=== PATIENT | male | born 1950 | race Caucasian/White ===

== ENCOUNTER → 2018-04-13 | Outpatient (CLI) | payer BC ==
[2018-04-13 12:26] LABS: BASO % 0.6 %; BASO ABS # 0.04 K/uL (0-0.2); EOS % 3.2 %; EOS ABS # 0.23 K/uL (0-0.5); HEMATOCRIT 44.2 % (42-52); HEMOGLOBIN 14.5 g/dL (14.0-18.0); IG# 0.03 K/uL (0.00-0.02); LYMPH % 26.3 %; LYMPH ABS # 1.88 K/uL (1.2-3.4); MEAN CORPUSCULAR HEMOGLOBIN 28.9 pg (25-34); MEAN CORPUSCULAR HGB CONC 32.8 g/dl (32-36); MEAN PLATELET VOLUME 9.8 fL (7.4-10.4); MONO % 7.6 %; MONO ABS # 0.54 K/uL (0.11-0.59); NEUT % 61.9 %; NEUT ABS # 4.42 K/uL (1.4-6.5); PLATELET COUNT 129 K/uL (130-400); RED CELL DISTRIBUTION WIDTH CV 13.6 % (11.5-14.5); RED CELL DISTRIBUTION WIDTH SD 43.7 fL (36.4-46.3); WHITE BLOOD COUNT 7.14 K/uL (4.8-10.8)
[2018-04-13 12:56] LABS: HEMOGLOBIN A1C 7.6 % (4.5-5.6)
[2018-04-13 13:11] LABS: ALBUMIN 3.2 gm/dl (3.4-5.0); ALKALINE PHOSPHATASE 69 U/L (45-117); ALT/SGPT 25 U/L (12-78); AST/SGOT 22 U/L (15-37); BLOOD UREA NITROGEN 12 mg/dl (7-18); CALCIUM 9.8 mg/dl (8.5-10.1); CARBON DIOXIDE 25 mmol/L (21-32); CHOLESTEROL 110 mg/dl (0-200); GLUCOSE 162 mg/dl (70-99); LDL CHOLESTEROL CALCULATED 51 mg/dl; POTASSIUM 3.8 mmol/L (3.5-5.1); SODIUM 140 mmol/L (136-145); TOTAL PROTEIN 7.2 gm/dl (6.4-8.2)
== END | disposition home or self-care (01) ==
LOC: C.LABBFT 09:26
PROVIDERS: ATTEND Internal Medicine
DX: E11.65 Type 2 diabetes mellitus with hyperglycemia (principal); Z12.5 Encounter for screening for malignant neoplasm of prostate

== ENCOUNTER 2025-03-22 16:25 | Inpatient (IN) ==
--- NOTE | 2025-03-22 16:34 | Emergency Department Note ---
Impression & Plan Syncope, Elevated troponin, Weakness ED Provider Note NAME: TONG TRIPATHI AGE: 74 SEX: M : 1950 ARRIVES VIA: Ambulance INFORMANT: Patient ED PROVIDER(S): Angel Dobson DO CHIEF COMPLAINT: Syncope HPI: Patient is a 74-year-old male with a past medical history of opiate dependence, elevated liver enzymes, hypercalcemia, hypertension and hyperlipidemia who presents to the ER following a syncopal event. He was in his motorized wheelchair per EMS and he was found on the ground. He was unable to get up for about 2 hours. He does not remember the fall. He denies any head pain or neck pain. No pain from the fall. No chest pain or shortness of breath. No belly pain. No nausea, vomiting, or diarrhea. No dysuria, urgency, or frequency. Per EMS he was febrile. Patient notes that he does feel a little confused. ADDITIONAL HISTORY OBTAINED: Per HPI Chronic Medical/Social Conditions Affecting Care: Per HPI PAST MEDICAL HISTORY:See Below PAST SURGICAL HISTORY:See Below FAMILY HISTORY:See Below SOCIAL HISTORY:See Below HOME MEDICATIONS:See Below ALLERGIES:See Below VITALS:See Below PHYSICAL EXAMINATION: GENERAL: Sitting up in bed, alert, well appearing, well nourished, no distress, non-toxic HEAD: NC/AT EYE EXAM: normal conjunctiva. PERRL and EOM's grossly intact. OROPHARYNX: no exudate, no erythema, lips, buccal mucosa, and tongue normal and mucous membranes are moist NECK: supple, no nuchal rigidity, no adenopathy, non-tender LUNGS: Clear to auscultation. Normal chest wall mechanics HEART: no murmurs, S1 normal and S2 normal ABDOMEN: abdomen soft, non-tender, normo-active bowel sounds, no masses, no rebound or guarding. BACK: Back is symmetrical on inspection and there is no deformity, no midline tenderness, no CVA tenderness. SKIN: no rashes and no bruising UPPER EXTREMITIES: upper extremities are grossly normal. LOWER EXTREMITIES: No pitting edema. Calves are equal bilaterally NEURO EXAM: Awake alert oriented to person and place but not year, cranial nerves II-XII grossly intact, normal speech, no gross weakness of arms, no gross weakness of legs. MEDICAL DECISION MAKING: Patient is a 74-year-old male who presents to the ER for the above-stated complaint. IV was established and blood work was obtained. provides additional history that she found him down on the ground and he was disoriented and very confused. Labs show leukocytosis of 13,000. No significant anemia. BMP with mild hypokalemia at 3.4. Calcium was mildly elevated 10.7. LFTs bilirubin was unremarkable. CK was normal. Troponin was mildly elevated at 24. This in the setting of syncope I did discuss with the hospitalist for observation. Pulse ox was 90-92% on room air. CT angio was negative of the chest for PE. Patient was placed prophylactically on nasal cannula per nursing staff. Patient was discussed with the hospitalist for the confusion, syncope and elevated troponin for further evaluation management treatment. Consults/Care Managements Discussions: Per [facility] Triage Nursing notes reviewed. Limited review of prior medical records performed Vital Signs: reviewed and remarkable for no significant abnormalities Differential diagnosis: Differential diagnosis includes etiologies such as vasovagal event, infection, hypoglycemia, electrolyte abnormalities, cardiac sources, intracerebral event, toxicologic, neurologic, as well as others were entertained. ER treatment provided: See below Diagnostics interpreted by me include EKG and cardiac monitoring as listed below: -Cardiac Monitoring: An order was placed for continuous cardiac monitoring. The monitor shows a rate of 110 with sinus rhythm. -ECG: Sinus tachycardia rate of 112 Left axis No PVCs QTc 469 -Laboratory studies:Interpreted by me as stated above in MDM and shown below. Imaging studies: Xrays: As interpreted by me: Portable AP upright 1 view of the chest shows no focal Lutrate CTs show: CT of the head per radiology shows no acute pathology Procedures:none Critical Care: None Past Med/Surg History Problem List (Updated 03/22/25 @ 18:46 by Magdy Rao MD) Type 2 diabetes mellitus Near syncope Elevated troponin Urinary incontinence Leukocytosis Metabolic encephalopathy Weakness (Acute) Elevated troponin (Acute) Syncope (Acute) Haq's esophagus with high grade dysplasia Lumbar spondylolysis moderate upper lumbar spondylosis, mild dextroscolisois and asymmetric facet hypertrophy; noted on xrays done at [facility] 05/07/2022 Tricompartment osteoarthritis of knee moderate to severe medial femorotibial and moderate patellofemoral compartment disease on R; xrays done at [facility] on 05/07/2022; s/p tigist procedure Osteoarthritis of right hip mild, noted on xrays done at [facility] 05/07/2022 Patellofemoral arthritis of left knee mild, xrays done at [facility] 06/05/22 Depression Smoking hx-quit 10/2022 Vitamin D deficiency Hypercalcemia Proteinuria dr didn't mention this at his 04/2023 appt. Elevated liver enzymes Urinary incontinence resolved Opioid dependence Uncontrolled diabetes mellitus with microalbuminuria Tubular adenoma (06/2019) Recheck colonoscopy recommended 3 years BPH (benign prostatic hyperplasia) Hypertension Hyperlipidemia Medical History Lyme disease Urinary incontinence Hx of colonic polyps Tricompartment osteoarthritis of knee moderate to severe medial femorotibial and moderate patellofemoral compartment disease on R; xrays done at [facility] on 05/07/2022; s/p tigist procedure Opioid dependence Lumbar spondylolysis moderate upper lumbar spondylosis, mild dextroscolisois and asymmetric facet hypertrophy; noted on xrays done at [facility] 05/07/2022 Hypertension Hyperlipidemia BPH (benign prostatic hyperplasia) Bilateral knee pain Back pain History of recent fall 04/29/23, fell at home, does have bruising on bilateral legs, also hit his head and has some small cuts on his head.>per and pt "he is ok and hs didn't want to go to the doctor to get checked out.">resolved Haq esophagus History of anesthesia reaction woke up early from anesthesia-years ago Depression Positive FIT (fecal immunochemical test) pt unsure GERD (gastroesophageal reflux disease) Diabetes mellitus, type 2 IDDM Tremor of both hands NO DX-PARKINSON R/O 'ED SOB (shortness of breath) on exertion Sleep apnea SLEEP STUDY-WAS PRESCRIBED DEVICE-HAS SINCE LOST 120 LBS-NO DEVICE Surgical History Hx of bilateral cataract extraction History of esophagogastroduodenoscopy (EGD) June 2019 Haq's esophagus with high-grade dysplasia, follow-up EGD performed September 2019 at [facility] with excision/resection of dysplastic mucosa History of colonoscopy (06/2019) Approximately 10 tubular adenomas removed from colon, recheck recommended 3 years, Case History of tonsillectomy H/O: knee surgery OPEN RIGHT History of arthroscopy RIGHT KNEE X 2 Family History Father Family history of diabetes mellitus Coronary heart disease Hypertension Cardiac disorder Myocardial infarction Brother Family history of diabetes mellitus Denies family history of Ovarian cancer Prostate cancer Breast cancer Colorectal cancer Social History Smoking Status: Never smoker Tobacco Type: Cigarettes Age Started Using Tobacco: 18; Age Quit Using Tobacco: 72; packs per day: 1; Cigarettes Per Day: 20; Second Hand Exposure: No; Do You Dip or Chew Tobacco: No; Hx Alcohol Use: Yes Alcohol type: hard liquor Alcohol Intake Frequency: Monthly or Less Hx Substance Use: Yes (medical card) Prescribed Medications: Marijuana Last Used Substance Other:: daily use, "takes a couple hits at a time" Preferred Language: B[place] Communication Ability: Effective Visual Impairment: No Limitations Hearing Ability: Normal 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 Beliefs That Will Affect Care: None marital status: Current Living Situation: Spouse current occupational status: retired current occupation: used to work at [employer] Feels Safe at Home: Yes Childhood Exposure to Second-Hand Smoke: Yes Diet: regular caffeine: Yes Dental Care, Regularly: No Physical Activity Frequency: Does not Exercise Seatbelt Use: never Sunscreen Use: No Assistive Devices: Denture - Upper, Denture - Lower, Glasses and Hearing Aid - Bilateral Allergies Allergies Allergy/AdvReac Type Severity Reaction Status Date / Time lisinopril Allergy Mild Cough Verified 02/09/25 14:57 Home Meds Home Medications Medication Instructions Recorded Confirmed folic acid 1 mg tablet 1 mg PO QAM 04/08/22 03/22/25 cyanocobalamin (vitamin B-12) 1,000 mcg IM Q30D 07/29/22 03/22/25 1,000 mcg/mL injection solution duloxetine 30 mg capsule,delayed 30 mg PO QAM 04/30/23 03/22/25 release duloxetine 60 mg capsule,delayed 60 mg PO QAM 04/30/23 03/22/25 release finasteride 5 mg tablet 5 mg PO QAM 04/30/23 03/22/25 furosemide 20 mg tablet 20 mg PO QAM 04/30/23 03/22/25 omeprazole 20 mg tablet,delayed 20 mg PO QAM 04/30/23 03/22/25 release insulin human U-100 NPH-regulr 50 unit subcut BID 02/16/24 03/22/25 70-30 mix 100 unit/mL subcutaneous susp (Novolin 70/30 U-100 Insulin) Medical Marijuana 1 dose inhalation UD PRN Pain 05/13/24 03/22/25 cholecalciferol (vitamin D3) 25 50 mcg PO QAM 05/13/24 03/22/25 mcg (1,000 unit) capsule (Vitamin D3) sitagliptin 100 mg tablet (Zituvio) 100 mg PO QAM 05/13/24 03/22/25 trospium 20 mg tablet 20 mg PO HS 05/13/24 03/22/25 metformin 500 mg tablet 500 mg PO BID 03/22/25 03/22/25 Previous Rx's Medication Instructions Recorded blood sugar diagnostic (OneTouch #100 ea 12/01/19 Verio test strips) lancets 30 gauge (OneTouch Delica #100 ea 12/01/19 Lancets) insulin syringe-needle U-100 1 mL #400 ea 03/06/22 31 gauge x 5/16" (BD Insulin Syringe Ultra-Fine) losartan 100 mg tablet 100 mg PO QAM #90 tabs 07/09/22 rosuvastatin 40 mg tablet 40 mg PO QAM #90 tabs 07/22/22 oxycodone 10 mg tablet 10 mg PO Q8H PRN pain 30 days #90 03/01/25 tabs oxycodone 15 mg tablet,crush 15 mg PO BID 30 days #60 tabs 03/01/25 resistant,extended release 12 hr (OxyContin) Results & Data (ED) Vital Signs Vital Signs - 24 hr 03/22/25 16:25 03/22/25 16:31 03/22/25 17:00 Temperature 37 C Temperature Source Oral Pulse Rate 113 H 113 H 108 H Pulse Rate [Apical] Pulse Rate from SpO2 Sensor Pulse Rhythm Regular Respiratory Rate 15 15 25 H Respiratory Effort / Characteristics Non-Labored Respiratory Depth Normal Respiratory Pattern Regular Blood Pressure 106/78 137/82 Blood Pressure [Right Arm] Blood Pressure Mean 87 98 Blood Pressure Mean [Right Arm] Pulse Oximetry 90 90 Oxygen Delivery Method Room Air Room Air Oxygen Flow Rate Sepsis Recent Fever Within 48 Hours No Sepsis New/Unexplained Change in Mental Status N/A Sepsis Action Taken by Nursing No Action Required 03/22/25 17:30 03/22/25 18:35 03/22/25 19:03 Temperature Temperature Source Pulse Rate 105 H 101 H Pulse Rate [Apical] Pulse Rate from SpO2 Sensor 103 H Pulse Rhythm Respiratory Rate 22 Respiratory Effort / Characteristics Respiratory Depth Respiratory Pattern Blood Pressure 125/83 149/88 H Blood Pressure [Right Arm] Blood Pressure Mean 97 108 Blood Pressure Mean [Right Arm] Pulse Oximetry 96 96 Oxygen Delivery Method Nasal Cannula Oxygen Flow Rate 2 Sepsis Recent Fever Within 48 Hours Sepsis New/Unexplained Change in Mental Status Sepsis Action Taken by Nursing 03/22/25 19:20 03/22/25 20:01 Temperature Temperature Source Pulse Rate 90 Pulse Rate [Apical] 99 H Pulse Rate from SpO2 Sensor Pulse Rhythm Respiratory Rate 20 14 Respiratory Effort / Characteristics Non-Labored Spontaneous Respiratory Depth Normal Respiratory Pattern Blood Pressure 158/91 H Blood Pressure [Right Arm] 131/80 Blood Pressure Mean 101 Blood Pressure Mean [Right Arm] 97 Pulse Oximetry 96 96 Oxygen Delivery Method Nasal Cannula Nasal Cannula Oxygen Flow Rate 2 2 Sepsis Recent Fever Within 48 Hours Sepsis New/Unexplained Change in Mental Status Sepsis Action Taken by Nursing Laboratory Data 03/22/25 16:30 03/22/25 16:30 Lab Results 03/22/25 03/22/25 03/22/25 Range/Units 16:30 16:36 19:12 WBC 13.33 H (4.8-10.8) K/ul RBC 5.01 (4.70-6.10) M/uL Hgb 13.8 L (14.0-18.0) g/dl POC Hgb 13.6 L (14.0-18.0) g/dl Hct 40.3 L (42.0-52.0) % POC Hct 40 L (42-52) % MCV 80.4 (80.0-100.0) fL MCH 27.5 (25.0-34.0) pg MCHC 34.2 (32.0-36.0) g/dL RDW Std Deviation 41.8 (36.4-46.3) fL RDW Coeff of Colleen 14.4 (11.5-14.5) % Plt Count 167 (130-400) K/uL MPV 9.1 L (9.4-12.4) fL Immature Gran % (Auto) 0.6 % Neut % (Auto) 82.3 % Lymph % (Auto) 9.5 % [place] % (Auto) 6.1 % Eos % (Auto) 1.1 % Baso % (Auto) 0.4 % Neut # (Auto) 10.98 H (1.40-6.50) K/uL Lymph # (Auto) 1.27 (1.20-3.40) K/uL [place] # (Auto) 0.81 H (0.11-0.59) K/uL Eos # (Auto) 0.14 (0.00-0.50) K/uL Baso # (Auto) 0.05 (0.00-0.20) K/uL Immature Gran # (Auto) 0.08 (0.01-0.20) K/uL POC Sodium 141 (135-144) mmol/L Sodium 141 (136-145) mmol/L POC Potassium 3.4 (3.3-5.0) mmol/L Potassium 3.4 L (3.5-5.1) mmol/L POC Chloride 110 (101-112) mmol/L Chloride 111 H (98-107) mmol/L Carbon Dioxide 22 (21-32) mmol/L POC Total CO2 18 L (24-31) mmol/L Anion Gap 8 (3-11) POC Anion Gap 17.0 (16-25) mmol/L POC BUN 9 (7-18) mg/dl BUN 11 (6-23) mg/dl Creatinine 0.65 (0.6-1.4) mg/dl POC Creatinine 0.7 (0.6-1.3) mg/dl Est Cr Clr Drug Dosing 107.7 ml/min eGFR 98.88 BUN/Creatinine Ratio 16.9 (10-20) Glucose 122 H (70-99(Fasting)) mg/dl POC Glucose (other) 121 H (70-99) mg/dl Calcium 10.7 H (8.6-10.3) mg/dl POC Ioniz Calcium Sebastian 1.41 H (1.12-1.32) mmol/l Total Bilirubin 1.0 (0.2-1.0) mg/dl AST 23 (13-39) U/L ALT 18 (7-52) U/L Alkaline Phosphatase 70 (34-104) U/L Total Creatine Kinase 97 (30-223) U/L Troponin I High Sens 24.3 H (0-20) pg/ml Total Protein 6.5 (6.0-8.3) gm/dl Albumin 3.6 (3.4-5.0) gm/dl Globulin 2.9 (2.5-4.0) gm/dl Albumin/Globulin Ratio 1.2 (0.9-2) Lipase 12 (11-82) U/L Urine Color Yellow Urine Appearance Clear (Clear) Urine pH 5.0 (4.5-7.5) Ur Specific [place] 1.022 (1.000-1.030) Urine Protein 4+ H (Negative) Urine Glucose (UA) 2+ H (Negative) Urine Ketones Trace H (Negative) Urine Blood 2+ H (Negative) Urine Nitrite Negative (Negative) Urine Bilirubin Negative (Negative) Urine Urobilinogen Negative (Negative) Ur Leukocyte Esterase Negative (Negative) Urine WBC (Auto) 0-5 (0-5) /hpf Urine RBC (Auto) 0-2 (0-2) /hpf U Hyaline Cast (Auto) >20 H (0-2) /lpf U Epithel Cells (Auto) 0-2 (0-2) /hpf Urine Bacteria (Auto) None Seen (None Seen) Hyaline Casts Present A (None Presnt) /lpf Granular Casts Present A (None Prsent) /lpf Urine Comment Administered Medications Discontinued Medications Sodium Chloride (Nss) 1,000 mls @ 999 mls/hr IV .Q1H1M ONE Stop: 03/22/25 17:34 Last Infusion: 03/22/25 19:27 Dose: Infused Documented By: Admin: 03/22/25 16:42 Dose: 999 mls/hr Documented By: MERVIN Ioversol (Optiray 320 125ml) 115 ml IV ONCE ONE Stop: 03/22/25 18:55 Last Admin: 03/22/25 18:54 Dose: 115 ml Documented By: ISABEL Imaging Data Radiologist's Impression: Head CT 03/22/25 16:31 Clinical History: Fall Technique: Axial computed tomography images were obtained of the brain without intravenous contrast. Findings: There is diffuse cerebral atrophy, within expected limits for the patient's age. Areas of decreased attenuation are seen within the periventricular white matter, likely representing chronic small vessel ischemic disease. There is no definite sign of acute or old infarction. No intracranial hemorrhage is evident. No definite mass lesion is seen on this noncontrast examination. There is no midline shift or other form of herniation. No hydrocephalus is seen. No fracture is identified. The orbits and the visualized paranasal sinuses appear unremarkable. The mastoid air cells appear clear. Impression: 1. Cerebral atrophy and chronic small vessel ischemic disease 2. Otherwise unremarkable noncontrast CT of the brain Electronically signed by Will Hylton 03-22-2025 5:40 PM Chest X-Ray 03/22/25 16:37 Chest radiograph, one view History: Chest pain Comparison: None Findings: Single AP view of the chest performed. No focal consolidation or pleural effusion. No pneumothorax. The cardiomediastinal silhouette is within normal limits. Normal pulmonary vascularity. No evidence for lymphadenopathy. No visualized bony or soft tissue abnormality. A chronic right lower rib deformity is seen. Impression: Normal chest radiograph Electronically signed by Raymundo Hayward 03-22-2025 5:30 PM Chest CTA 03/22/25 18:38 CT pulmonary angiogram with IV contrast History: Fall COMPARISON: None TECHNIQUE: CT angiography of the chest was performed without IV contrast followed by IV contrast, including 3D post processing CTA image reconstruction. Dose reduction techniques were achieved by using automatic exposure control and/or adjustment of mA and/or kV according to patient size and/or use of iterative reconstruction technique. FINDINGS: Diagnostic quality: Mild limitations of the subsegmental arteries in the lung bases due to respiratory motion. Remainder of the study is adequate There is no evidence for pulmonary embolism. The heart is not enlarged. Moderate coronary calcification. There is no pericardial effusion. There are no abnormally enlarged hilar or mediastinal lymph nodes. No aortic dissection. The central tracheobronchial tree is clear. The lungs are clear. There is no pleural effusion. Limited visualized upper abdomen. Nodular contour of the liver compatible with cirrhosis. The spleen appears enlarged possibly due to portal hypertension. No destructive osseous changes are seen. Multilevel chronic bisection changes of the lateral right sided ribs. IMPRESSION: No evidence for pulmonary embolism. Mild limitations of the subsegmental arteries in the lung bases due to respiratory motion. Remainder of the study is adequate Electronically signed by Raymundo Hayward 03-22-2025 7:20 PM Discharge Plan Visit Data Chief Complaint: Illness ED Provider: Angel Dobson Discharge Problem: Syncope, Elevated troponin, Weakness Condition: Fair Prescriptions Prescriptions: No Action (DME) blood sugar diagnostic [OneTouch Verio test strips] Strip See Rx Instructions .ROUTE .MEDSUPPLY Qty: 100 5RF Rx Instructions: USE TO CHECK BLOOD SUGARS TWICE A DAY E11.65 E11.9 (DME) lancets [OneTouch Delica Lancets] 30 gauge misc See Rx Instructions .ROUTE .MEDSUPPLY Qty: 100 5RF Rx Instructions: USE TO TEST TWICE DAILY E11.9 E11.65 (DME) insulin syringe-needle U-100 [BD Insulin Syringe Ultra-Fine] 1 mL 31 gauge x 5/16 syringe See Rx Instructions .ROUTE .MEDSUPPLY Qty: 400 3RF Rx Instructions: As directed losartan 100 mg tablet 100 mg PO QAM Qty: 90 3RF rosuvastatin 40 mg tablet 40 mg PO QAM Qty: 90 3RF Novolin 70/30 U-100 Insulin 100 unit/mL (70-30) suspension 50 unit SUBCUT BID Rx Instructions: can do up to 3 times daily depending on sugar levels oxycodone 10 mg tablet 10 mg PO Q8H PRN (Reason: pain) 30 Days Qty: 90 0RF oxycodone [OxyContin] 15 mg tablet,oral only,ext.rel.12 hr 15 mg PO BID 30 Days Qty: 60 0RF folic acid 1 mg tablet 1 mg PO QAM cyanocobalamin (vitamin B-12) 1,000 mcg/mL Solution 1,000 mcg IM Q30D furosemide 20 mg tablet 20 mg PO QAM finasteride 5 mg tablet 5 mg PO QAM duloxetine 30 mg capsule,delayed release(DR/EC) 30 mg PO QAM Rx Instructions: [facility] duloxetine 60 mg capsule,delayed release(DR/EC) 60 mg PO QAM Rx Instructions: take with 30 mg for 90mg dose omeprazole 20 mg tablet,delayed release (DR/EC) 20 mg PO QAM sitagliptin [Zituvio] 100 mg Tablet 100 mg PO QAM cholecalciferol (vitamin D3) [Vitamin D3] 25 mcg (1,000 unit) Capsule 50 mcg PO QAM trospium 20 mg Tablet 20 mg PO HS Rx Instructions: administer on an empty stomach Medical Marijuana 1 dose inhalation UD PRN (Reason: Pain) metformin 500 mg tablet 500 mg PO BID Referrals Referrals: Perla Sosa MD [Primary Care Provider] - Discharge Problem: Syncope Qualifiers: Syncope type: unspecified Qualified Code(s): R55 - Syncope and collapse
[2025-03-22] MEDS: SODIUM CHLORIDE 0.9% 1,000 ML IV ONE (16:42)
[2025-03-22 16:48] LABS: Hematocrit (blood only) 40.3 % (42.0-52.0); Hemoglobin 13.8 g/dl (14.0-18.0); Immature Granulocytes # (auto) 0.08 K/uL (0.01-0.20); Immature Granulocytes % (auto) 0.6 %; Mean Corpuscular Hemoglobin 27.5 pg (25.0-34.0); Mean Corpuscular Volume 80.4 fL (80.0-100.0); Platelet Count 167 K/uL (130-400); RDW Standard Deviation 41.8 fL (36.4-46.3); Red Blood Count 5.01 M/uL (4.70-6.10); White Blood Count 13.33 K/ul (4.8-10.8)
[2025-03-22 17:07] LABS: Alanine Aminotransferase 18.0 U/L (7-52); Albumin Globulin Ratio 1.2 (0.9-2); Alkaline Phosphatase 70.0 U/L (34-104); Anion Gap 8.0 (3-11); Bilirubin,Total 1.0 mg/dl (0.2-1.0); Blood Urea Nitrogen 11.0 mg/dl (6-23); Calcium 10.7 mg/dl (8.6-10.3); Carbon Dioxide 22.0 mmol/L (21-32); Chloride 111.0 mmol/L (98-107); Creatine Kinase 97.0 U/L (30-223); Creatinine Clr Calc Pharmacy 107.7 ml/min; Globulin 2.9 gm/dl (2.5-4.0); Glucose 122.0 mg/dl (70-99(Fasting)); Lipase 12.0 U/L (11-82); Potassium 3.4 mmol/L (3.5-5.1); Sodium 141.0 mmol/L (136-145); Total Protein 6.5 gm/dl (6.0-8.3)
--- NOTE | 2025-03-22 17:31 | XRay Report ---
Chest radiograph, one view History: Chest pain Comparison: None Findings: Single AP view of the chest performed. No focal consolidation or pleural effusion. No pneumothorax. The cardiomediastinal silhouette is within normal limits. Normal pulmonary vascularity. No evidence for lymphadenopathy. No visualized bony or soft tissue abnormality. A chronic right lower rib deformity is seen. Impression: Normal chest radiograph Electronically signed by Raymundo Hayward 03-22-2025 5:30 PM
--- NOTE | 2025-03-22 17:41 | CT Scan Report ---
Clinical History: Fall Technique: Axial computed tomography images were obtained of the brain without intravenous contrast. Findings: There is diffuse cerebral atrophy, within expected limits for the patient's age. Areas of decreased attenuation are seen within the periventricular white matter, likely representing chronic small vessel ischemic disease. There is no definite sign of acute or old infarction. No intracranial hemorrhage is evident. No definite mass lesion is seen on this noncontrast examination. There is no midline shift or other form of herniation. No hydrocephalus is seen. No fracture is identified. The orbits and the visualized paranasal sinuses appear unremarkable. The mastoid air cells appear clear. Impression: 1. Cerebral atrophy and chronic small vessel ischemic disease 2. Otherwise unremarkable noncontrast CT of the brain Electronically signed by Will Hylton 03-22-2025 5:40 PM
--- NOTE | 2025-03-22 18:48 | History & Physical Report ---
Date of Service March 22, 2025 Assessment & Plan (1) Metabolic encephalopathy: Plan: The patient presented with acute encephalopathy but was not apparently hypoglycemic at the scene. This has since resolved and he is alert and oriented at the time of my examination. Rule out occult infectious process. Rocephin has been started (2) Leukocytosis: Plan: Could be stress demargination or active infection, possibly UTI. Rocephin has been started. Blood and urine cultures have been requested. Urine analysis is pending (3) Urinary incontinence: Plan: Chronic. The patient denies dysuria or hematuria. He may have a UTI causing current symptoms. Urine culture and urine analysis ordered and pending. Rocephin has been started. (4) Elevated troponin: Plan: Mild. No chest pain. No acute EKG changes. Telemetry. Serial troponin levels (5) Near syncope: Plan: He apparently was down for 2 hours and has abrasions and contusions involving both knees. Currently his vital signs are stable and he is alert and oriented. Supportive care. Telemetry (6) Opioid dependence: Plan: Apparently he takes oxycodone chronically for pain (7) Type 2 diabetes mellitus: Plan: states that he was not hypoglycemic when the squad arrived. ADA diet. Continue NPH insulin twice daily. Sliding scale coverage. Plan To be determined by clinical course History of Present Illness Chief Complaint: Metabolic encephalopathy, found down on ground. Primary Care Provider: Perla Sosa MD 74-year-old white male who was found down on the ground outside of approximately 2 hours duration according to his . He was lethargic at the time with apparent metabolic encephalopathy but not hypoglycemic per when squad arrived. He denies actually passing out and there was no apparent trauma. He denies chest pain or shortness of breath. No acute EKG changes although troponin is mildly elevated. Head CT scan reveals microvascular changes and atrophy. Chest x-ray is negative. He appears to be in mild sinus tachycardia. Mild leukocytosis noted on admission. He has chronic urinary incontinence and wears depends. He denies feeling dysuria. Urine analysis is pending along with urine cultures and blood cultures. Rocephin has been ordered. At the time of my examination the patient is alert and oriented in no acute distress. He is oriented to name, time, place. is at the bedside. No recent melena or hematochezia. He denies fever or chills. No nausea or vomiting. No other family members are ill. He is admitted for further evaluation and treatment. Allergies Allergy/AdvReac Type Severity Reaction Status Date / Time lisinopril Allergy Mild Cough Verified 02/09/25 14:57 Home Medications Medication Instructions Recorded Confirmed Type blood sugar diagnostic (OneTouch #100 ea 12/01/19 02/09/25 Rx Verio test strips) lancets 30 gauge (OneTouch Delica #100 ea 12/01/19 02/09/25 Rx Lancets) insulin syringe-needle U-100 1 mL #400 ea 03/06/22 02/09/25 Rx 31 gauge x 5/16" (BD Insulin Syringe Ultra-Fine) folic acid 1 mg tablet 1 mg PO QAM 04/08/22 03/22/25 History losartan 100 mg tablet 100 mg PO QAM #90 tabs 07/09/22 03/22/25 Rx rosuvastatin 40 mg tablet 40 mg PO QAM #90 tabs 07/22/22 03/22/25 Rx cyanocobalamin (vitamin B-12) 1,000 mcg IM Q30D 07/29/22 03/22/25 History 1,000 mcg/mL injection solution duloxetine 30 mg capsule,delayed 30 mg PO QAM 04/30/23 03/22/25 History release duloxetine 60 mg capsule,delayed 60 mg PO QAM 04/30/23 03/22/25 History release finasteride 5 mg tablet 5 mg PO QAM 04/30/23 03/22/25 History furosemide 20 mg tablet 20 mg PO QAM 04/30/23 03/22/25 History omeprazole 20 mg tablet,delayed 20 mg PO QAM 04/30/23 03/22/25 History release insulin human U-100 NPH-regulr 50 unit subcut BID 02/16/24 03/22/25 History 70-30 mix 100 unit/mL subcutaneous susp (Novolin 70/30 U-100 Insulin) Medical Marijuana 1 dose inhalation UD PRN Pain 05/13/24 03/22/25 History cholecalciferol (vitamin D3) 25 50 mcg PO QAM 05/13/24 03/22/25 History mcg (1,000 unit) capsule (Vitamin D3) sitagliptin 100 mg tablet (Zituvio) 100 mg PO QAM 05/13/24 03/22/25 History trospium 20 mg tablet 20 mg PO HS 05/13/24 03/22/25 History oxycodone 10 mg tablet 10 mg PO Q8H PRN pain 30 days #90 03/01/25 03/22/25 Rx tabs oxycodone 15 mg tablet,crush 15 mg PO BID 30 days #60 tabs 03/01/25 03/22/25 Rx resistant,extended release 12 hr (OxyContin) metformin 500 mg tablet 500 mg PO BID 03/22/25 03/22/25 History Past Med/Surg History Problem List (Updated 03/22/25 @ 18:46 by Magdy Rao MD) Type 2 diabetes mellitus Near syncope Elevated troponin Urinary incontinence Leukocytosis Metabolic encephalopathy Weakness (Acute) Elevated troponin (Acute) Syncope (Acute) Haq's esophagus with high grade dysplasia Lumbar spondylolysis moderate upper lumbar spondylosis, mild dextroscolisois and asymmetric facet hypertrophy; noted on xrays done [facility] 05/07/2022 Tricompartment osteoarthritis of knee moderate to severe medial femorotibial and moderate patellofemoral compartment disease on R; xrays done at [facility] on 05/07/2022; s/p tigist procedure Osteoarthritis of right hip mild, noted on xrays done at [facility] 05/07/2022 Patellofemoral arthritis of left knee mild, xrays done at [facility] 06/05/22 Depression Smoking hx-quit 10/2022 Vitamin D deficiency Hypercalcemia Proteinuria dr didn't mention this at his 04/2023 appt. Elevated liver enzymes Urinary incontinence resolved Opioid dependence Uncontrolled diabetes mellitus with microalbuminuria Tubular adenoma (06/2019) Recheck colonoscopy recommended 3 years BPH (benign prostatic hyperplasia) Hypertension Hyperlipidemia Medical History Lyme disease Urinary incontinence Hx of colonic polyps Tricompartment osteoarthritis of knee moderate to severe medial femorotibial and moderate patellofemoral compartment disease on R; xrays done [facility] on 05/07/2022; s/p tigist procedure Opioid dependence Lumbar spondylolysis moderate upper lumbar spondylosis, mild dextroscolisois and asymmetric facet hypertrophy; noted on xrays done at [facility] 05/07/2022 Hypertension Hyperlipidemia BPH (benign prostatic hyperplasia) Bilateral knee pain Back pain History of recent fall 04/29/23, fell at home, does have bruising on bilateral legs, also hit his head and has some small cuts on his head.>per and pt "he is ok and hs didn't want to go to the doctor to get checked out.">resolved Haq esophagus History of anesthesia reaction woke up early from anesthesia-years ago Depression Positive FIT (fecal immunochemical test) pt unsure GERD (gastroesophageal reflux disease) Diabetes mellitus, type 2 IDDM Tremor of both hands NO DX-PARKINSON R/O 'ED SOB (shortness of breath) on exertion Sleep apnea SLEEP STUDY-WAS PRESCRIBED DEVICE-HAS SINCE LOST 120 LBS-NO DEVICE Surgical History Hx of bilateral cataract extraction History of esophagogastroduodenoscopy (EGD) June 2019 Haq's esophagus with high-grade dysplasia, follow-up EGD performed September 2019 at [facility] with excision/resection of dysplastic mucosa History of colonoscopy (06/2019) Approximately 10 tubular adenomas removed from colon, recheck recommended 3 years, Case History of tonsillectomy H/O: knee surgery OPEN RIGHT History of arthroscopy RIGHT KNEE X 2 Family History Father Family history of diabetes mellitus Coronary heart disease Hypertension Cardiac disorder Myocardial infarction Brother Family history of diabetes mellitus Denies family history of Ovarian cancer Prostate cancer Breast cancer Colorectal cancer Social History Smoking Status: Never smoker Tobacco Type: Cigarettes Age Started Using Tobacco: 18; Age Quit Using Tobacco: 72; packs per day: 1; Cigarettes Per Day: 20; Second Hand Exposure: No; Do You Dip or Chew Tobacco: No; Hx Alcohol Use: Yes Alcohol type: hard liquor Alcohol Intake Frequency: Monthly or Less Hx Substance Use: Yes (medical card) Prescribed Medications: Marijuana Last Used Substance Other:: daily use, "takes a couple hits at a time" Preferred Language: [place]i Communication Ability: Effective Visual Impairment: No Limitations Hearing Ability: Normal Commercial [employer]am[employer] Required: No Beliefs That Will Affect Care: None marital status: Current Living Situation: Spouse current occupational status: retired current occupation: used to work at [employer] Feels Safe at Home: Yes Childhood Exposure to Second-Hand Smoke: Yes Diet: regular caffeine: Yes Dental Care, Regularly: No Physical Activity Frequency: Does not Exercise Seatbelt Use: never Sunscreen Use: No Assistive Devices: Denture - Upper, Denture - Lower, Glasses and Hearing Aid - Bilateral Review of Systems 2 Review of Systems: Constitutionalno fever or chills. Unfortunately, he has no memory of recent events although he does state that he did not feel any palpitations and does not think he actually passed out completely. ENTno blurred vision, no double vision, no epistaxis, no sore throat Respiratoryno cough, no wheezing, no shortness of breath Cardiacno palpitations, no chest pain. Possible syncope or near syncope Marky nausea, vomiting, diarrhea, melena, hematochezia GUno urinary retention, no dysuria, no hematuria. He does have chronic urinary incontinence and wears depends Musculoskeletalno joint pain, no muscle tenderness Skinno bruising, no rashes, no pruritus. Contusions and abrasions noted on both knees for being on the ground Neurono isolated weakness, no paresthesia Psychno depression, no anxiety Physical Exam 2 Physical Exam: General-alert and oriented x3, no fever, no chills HEENT-head atraumatic and normocephalic, pupils equal and reactive to light, extraocular muscles intact Neck-no lymphadenopathy or thyromegaly, trachea midline Chest-clear to auscultation. No rales, wheezing or rhonchi Cardiac-mildly tachycardic rate and regular rhythm, normal S1 and S2 Abdomen-normal bowel sounds, no hepatosplenomegaly Extremities-no cyanosis, clubbing, or edema. Abrasions noted on both knees Neuro-cranial nerves II through XII intact, motor and sensory function within normal limits, strength symmetrical, no focal deficits. He appears to have a movement disorder Psych-normal affect, normal mood Results & Data Results & Data Vital Signs (Past 12 Hours) Vital Signs Temp Pulse Resp BP Pulse Ox O2 Del Method 03/22/25 17:30 125/83 96 03/22/25 17:00 108 H 25 H 137/82 03/22/25 16:31 113 H 15 90 Room Air 03/22/25 16:25 37 C 113 H 15 106/78 90 Room Air Laboratory Results 03/22/25 16:30 03/22/25 16:30 Code Status & VTE Plan Code Status Full code PG Care Time/CCT Total # of Minutes Spent Total Time Spent with Patient: Total time spent is greater than 50% in coordination of care (as documented) at patient's floor/unit and/or counseling patient: Coding Level of Care Code 18275 INT INP/OBS CARE 3/75MIN Diagnoses Metabolic encephalopathy G93.41 Leukocytosis D72.829 Urinary incontinence R32 Elevated troponin R79.89 Near syncope R55 Opioid dependence F11.20 Type 2 diabetes mellitus E11.9
[2025-03-22] MEDS: OPTIRAY 320 125ml IV ONE (18:54)
--- NOTE | 2025-03-22 19:21 | CT Scan Report ---
CT pulmonary angiogram with IV contrast History: Fall COMPARISON: None TECHNIQUE: CT angiography of the chest was performed without IV contrast followed by IV contrast, including 3D post processing CTA image reconstruction. Dose reduction techniques were achieved by using automatic exposure control and/or adjustment of mA and/or kV according to patient size and/or use of iterative reconstruction technique. FINDINGS: Diagnostic quality: Mild limitations of the subsegmental arteries in the lung bases due to respiratory motion. Remainder of the study is adequate There is no evidence for pulmonary embolism. The heart is not enlarged. Moderate coronary calcification. There is no pericardial effusion. There are no abnormally enlarged hilar or mediastinal lymph nodes. No aortic dissection. The central tracheobronchial tree is clear. The lungs are clear. There is no pleural effusion. Limited visualized upper abdomen. Nodular contour of the liver compatible with cirrhosis. The spleen appears enlarged possibly due to portal hypertension. No destructive osseous changes are seen. Multilevel chronic bisection changes of the lateral right sided ribs. IMPRESSION: No evidence for pulmonary embolism. Mild limitations of the subsegmental arteries in the lung bases due to respiratory motion. Remainder of the study is adequate Electronically signed by Raymundo Hayward 03-22-2025 7:20 PM
[2025-03-22 19:40] LABS: Appearance Urine Clear (Clear); Bacteria Urine Automated None Seen (None Seen); Cast Urine Automated >20 /lpf (0-2); Epithelial Cell Urine Auto 0-2 /hpf (0-2); Glucose Urine UA 2+ (Negative); RBC Urine Automated 0-2 /hpf (0-2); WBC Urine Automated 0-5 /hpf (0-5)
[2025-03-22] MEDS ORDERED: DEXTROSE 50% 50 ML SYRINGE IV PRN (21:48)
[2025-03-22] MEDS ORDERED: ACETAMINOPHEN 325 MG TAB PO PRN (21:48)
[2025-03-22] MEDS ORDERED: CARBOHYDRATES FOR HYPOGLYCEMIA PO PRN (21:48)
[2025-03-22] MEDS ORDERED: GLUCAGON FOR INJ 1 MG VIAL SQ PRN (21:48)
[2025-03-22] MEDS ORDERED: GLUCOSE 40% GEL 15 GM TUBE PO PRN (21:48)
[2025-03-22] MEDS ORDERED: GLUCOSE 10 TAB/TUBE PO PRN (21:48)
[2025-03-22] MEDS ORDERED: ONDANSETRON INJ 2 MG/ML 2 ML VIAL IV PRN (21:48)
[2025-03-22] MEDS: INSULIN ASPART PER UNIT CHARGE SC SCH (22:33)
[2025-03-22] MEDS: cefTRIAXone SODIUM 2,000 MG/50 ML BAG IV SCH (22:33)
[2025-03-22] MEDS: SODIUM CHLORIDE 0.9% 1,000 ML IV SCH (22:34)
[2025-03-23 03:31] LABS: Hematocrit (blood only) 36.1 % (42.0-52.0); Hemoglobin 12.3 g/dl (14.0-18.0); Immature Granulocytes # (auto) 0.04 K/uL (0.01-0.20); Immature Granulocytes % (auto) 0.4 %; Mean Corpuscular Hemoglobin 28.1 pg (25.0-34.0); Mean Corpuscular Volume 82.4 fL (80.0-100.0); Platelet Count 150 K/uL (130-400); RDW Standard Deviation 42.6 fL (36.4-46.3); Red Blood Count 4.38 M/uL (4.70-6.10); White Blood Count 10.40 K/ul (4.8-10.8)
[2025-03-23 03:47] LABS: Anion Gap 5.0 (3-11); Blood Urea Nitrogen 11.0 mg/dl (6-23); Calcium 10.1 mg/dl (8.6-10.3); Carbon Dioxide 26.0 mmol/L (21-32); Chloride 108.0 mmol/L (98-107); Creatinine Clr Calc Pharmacy 108.4 ml/min; Glucose 159.0 mg/dl (70-99(Fasting)); Potassium 3.6 mmol/L (3.5-5.1); Sodium 139.0 mmol/L (136-145)
[2025-03-23] MEDS: CHOLECALCIFEROL 25 MCG (1000 UNITS) TAB PO SCH (07:59)
[2025-03-23] MEDS: FINASTERIDE 5 MG TAB PO SCH (07:59)
[2025-03-23] MEDS: FOLIC ACID 1 MG TAB PO SCH (07:59)
[2025-03-23] MEDS: INSULIN HUMAN NPH SC SCH (08:00)
[2025-03-23 08:05] VITALS: BP 150/75; RESP 20; TEMP 98.1; O2SAT 97
[2025-03-23] MEDS ORDERED: SITAGLIPTIN 100 MG PO SCH (09:00)
--- NOTE | 2025-03-23 10:57 | Electrocardiogram Report ---
Test Reason : Blood Pressure : */* mmHG Vent. Rate : 112 BPM Atrial Rate : * BPM P-R Int : * ms QRS Dur : 94 ms QT Int : 344 ms P-R-T Axes : * -14 -23 degrees QTcB Int : 469 ms Accelerated Junctional rhythm Incomplete right bundle branch block possible Inferior infarct , age undetermined Abnormal ECG No previous ECGs available Confirmed by Raymundo Yip ([id number]) on 03/23/2025 10:57:18 AM Referred By: REFERRED SELF Confirmed By: Raymundo Yip
--- NOTE | 2025-03-23 13:28 | Discharge Summary ---
Discharge Summary Date of Service March 23, 2025 Principal Dx & Hospital Course #1 = Principal Diagnosis (1) Metabolic encephalopathy: The patient presented with acute encephalopathy but was not apparently hypoglycemic at the scene. This has since resolved and he is alert and oriented at this time. All cultures remain negative for bacterial infection. He was treated with Rocephin while hospitalized. He will continue with oral Keflex for 5 more days at discharge. (2) Leukocytosis: Could be stress demargination or active infection, possibly UTI. Now resolved. (3) Urinary incontinence: Chronic. The patient denies dysuria or hematuria. He may have a UTI causing current symptoms. Urine culture is nondiagnostic however. He was treated while hospitalized with intravenous Rocephin and will continue with oral Keflex for 5 more days at discharge (4) Elevated troponin: Mild. No chest pain. No acute EKG changes. Telemetry. Serial troponin levels are nontrending (5) Near syncope: He apparently was down for 2 hours and has abrasions and contusions involving both knees. He is now back to his baseline with no recurrent syncope while hosp italized. Telemetry (6) Opioid dependence: Apparently he takes oxycodone chronically for pain (7) Type 2 diabetes mellitus: states that he was not hypoglycemic when the squad arrived. ADA diet. Treated while hospitalized with NPH insulin. He will resume his usual diabetic management at discharge. Plan Discharge to home today, March 23 Admission HPI Per Admitting Provider 74-year-old white male who was found down on the ground outside of approximately 2 hours duration according to his . He was lethargic at the time with apparent metabolic encephalopathy but not hypoglycemic per when squad arri asaf. He denies actually passing out and there was no apparent trauma. He denies chest pain or shortness of breath. No acute EKG changes although troponin is mildly elevated. Head CT scan reveals microvascular changes and atrophy. Chest x-ray is negative. He appears to be in mild sinus tachycardia. Mild leukocytosis noted on admission. He has chronic urinary incontinence and wears depends. He denies feeling dysuria. Urine analysis is pending along with urine cultures and blood cultures. Rocephin has been ordered. At the time of my examination the patient is alert and oriented in no acute distress. He is oriented to name, time, place. is at the bedside. No recent melena or hematochezia. He denies fever or chills. No nausea or vomiting. No other family members are ill. He is admitted for further evaluation and treatment. Discharge Exam General-alert and oriented x3, no fever, no chills HEENT-head atraumatic and normocephalic, pupils equal and reactive to light, extraocular muscles intact Neck-no lymphadenopathy or thyromegaly, trachea midline Chest-clear to auscultation. No rales, wheezing or rhonchi Cardiac-mildly tachycardic rate and regular rhythm, normal S1 and S2 Abdomen-normal bowel sounds, no hepatosplenomegaly Extremities-no cyanosis, clubbing, or edema. Abrasions noted on both knees Neuro-cranial nerves II through XII intact, motor and sensory function within normal limits, strength symmetrical, no focal deficits. He appears to have a movement disorder Psych-normal affect, normal mood Discharge Plan Discharge Items Patient Disposition: Home - Self-Care Reason For Visit: NEAR SYNCOPE, LEUKOCYTOSIS, METABOLIC ENCEPHALOPAT Discharge Diagnosis: Acute infectious illness of undetermined etiology, metabolic encephalopathy Condition on Discharge: Good Activity: Resume your previous activity Non-emergency contact: Primary Care Provider Call non-emergency contact if: your symptoms worsen Follow-up/Referrals: Perla Sosa MD [Primary Care Provider] - Diet: Carb Consistent or DM2 Addtl Attending Provider Instructions: Take cephalexin antibiotic twice a day for 5 days. A prescription has been sent to [facility] pharmacy in [place]. All other medications remain the same. See primary care provider soon as possible Pending Studies at Discharge: No Stand-Alone Forms: My [facility], Smoking Cessation Medications and DC Order Prescriptions: New cephalexin 500 mg capsule 500 mg PO BID Qty: 10 0RF Continued (DME) blood sugar diagnostic [OneTouch Verio test strips] Strip See Rx Instructions .ROUTE .MEDSUPPLY Qty: 100 5RF Rx Instructions: USE TO CHECK BLOOD SUGARS TWICE A DAY E11.65 E11.9 (DME) lancets [OneTouch Delica Lancets] 30 gauge misc See Rx Instructions .ROUTE .MEDSUPPLY Qty: 100 5RF Rx Instructions: USE TO TEST TWICE DAILY E11.9 E11.65 (DME) insulin syringe-needle U-100 [BD Insulin Syringe Ultra-Fine] 1 mL 31 gauge x 5/16 syringe See Rx Instructions .ROUTE .MEDSUPPLY Qty: 400 3RF Rx Instructions: As directed losartan 100 mg tablet 100 mg PO QAM Qty: 90 3RF rosuvastatin 40 mg tablet 40 mg PO QAM Qty: 90 3RF Novolin 70/30 U-100 Insulin 100 unit/mL (70-30) suspension 50 unit SUBCUT BID Rx Instructions: can do up to 3 times daily depending on sugar levels oxycodone 10 mg tablet 10 mg PO Q8H PRN (Reason: pain) 30 Days Qty: 90 0RF oxycodone [OxyContin] 15 mg tablet,oral only,ext.rel.12 hr 15 mg PO BID 30 Days Qty: 60 0RF folic acid 1 mg tablet 1 mg PO QAM cyanocobalamin (vitamin B-12) 1,000 mcg/mL Solution 1,000 mcg IM Q30D furosemide 20 mg tablet 20 mg PO QAM finasteride 5 mg tablet 5 mg PO QAM duloxetine 30 mg capsule,delayed release(DR/EC) 30 mg PO QAM Rx Instructions: [facility] duloxetine 60 mg capsule,delayed release(DR/EC) 60 mg PO QAM Rx Instructions: take with 30 mg for 90mg dose omeprazole 20 mg tablet,delayed release (DR/EC) 20 mg PO QAM sitagliptin [Zituvio] 100 mg Tablet 100 mg PO QAM cholecalciferol (vitamin D3) [Vitamin D3] 25 mcg (1,000 unit) Capsule 50 mcg PO QAM trospium 20 mg Tablet 20 mg PO HS Rx Instructions: administer on an empty stomach Medical Marijuana 1 dose inhalation UD PRN (Reason: Pain) metformin 500 mg tablet 500 mg PO BID Discharge Orders: Discharge Order (Routine); Ordered 03/23/25 Ordered By: Magdy Rao Admission Data Admit Date/Time: 03/22/25 18:51 Attending Provider: Magdy Rao Admit Provider: Magdy Rao Primary Care Provider: Perla Sosa Other Providers: Magdy Rao; [facility],Hospital Hospital Stay Data Consultations 03/22/25 17:46 ED Decision to Admit Stat Diagnostic Imagining Performed 03/22/25 16:31 CT head/brain wo con Stat 03/22/25 18:38 CT angio chest PE protocol Stat Pending Results Patient Have Any Pending Studies at Discharge: No Discharge Instructions Given to Patient (Per Discharging Provider) Take cephalexin antibiotic twice a day for 5 days. A prescription has been sent to [facility] pharmacy in [place]. All other medications remain the same. See primary care provider soon as possible Total Time Total Time Spent Total Time Spent (In Minutes): 50 minutes Coding Level of Care Code 23182 INP/OBS DISCH >30 MIN Diagnoses Metabolic encephalopathy G93.41 Leukocytosis D72.829 Urinary incontinence R32 Elevated troponin R79.89 Near syncope R55 Opioid dependence F11.20 Type 2 diabetes mellitus E11.9
[2025-03-23 13:48] VITALS: PULSE 99
== END 2025-03-23 14:16 | disposition home or self-care (01) | DRG 689 ==
LOC: SUATTDRO → ED 16:25 → 2N 18:51

== ENCOUNTER 2025-08-08 08:59 | Inpatient (IN) ==
--- NOTE | 2025-08-08 09:27 | Emergency Department Note ---
Impression & Plan Acute encephalopathy, Ambulatory dysfunction, Generalized weakness, Chronic anemia ED Provider Note NAME: TONG TRIPATHI AGE: 75 SEX: M : 1950 ARRIVES VIA: Walk-In INFORMANT: Patient, ED PROVIDER(S): Venkata Dominguez DO CHIEF COMPLAINT: AMS HPI: This is a 75-year-old male with the PMHx of HTN, HLD, BPH, OA, DM2, ?dementia and chronic pain presenting to [facility] for further evaluation of altered mental status. Patient is accompanied by his who provide additional history follow-up. The patient does not have any complaints at this time. Further history is obtained from his . Patient is obviously confused over the last few days. This significantly worsened since Friday. Patient has significant difficulty thought content and processing. also notes that the patient a low glucose. He has fallen multiple times but was able to support him. questions if he could have a UTI. They deny fever or chills. No cough or congestion. Denies chest pain or palpitations. No shortness of breath. They deny abdominal pain, nausea and vomiting. No urinary complaints. No recent changes in bowel movements. Patient denies recent changes in medications or OTC supplements. Patient offers no other complaints, today. ADDITIONAL HISTORY OBTAINED: Per HPI Chronic Medical/Social Conditions Affecting Care: Per HPI PAST MEDICAL HISTORY: See Below PAST SURGICAL HISTORY: See Below FAMILY HISTORY: See Below SOCIAL HISTORY: See Below HOME MEDICATIONS: See Below ALLERGIES: See Below VITALS: See Below PHYSICAL EXAMINATION: GENERAL: Sitting up in bed, alert, well appearing, well nourished, no distress, non-toxic EYE EXAM: normal conjunctiva. PERRL and EOM's grossly intact. OROPHARYNX: no exudate, no erythema, lips, buccal mucosa, and tongue normal and mucous membranes are moist NECK: supple, no nuchal rigidity, no adenopathy, non-tender LUNGS: Clear to auscultation. Normal chest wall mechanics HEART: no murmurs, regular rate, regular rhythm ABDOMEN: abdomen soft, non-tender, no masses, no rebound or guarding. BACK: Back is symmetrical on inspection and there is no deformity, no midline tenderness, no CVA tenderness. SKIN: no rashes and no bruising UPPER EXTREMITIES: upper extremities are grossly normal. LOWER EXTREMITIES: No pitting edema. NEURO EXAM: Normal sensorium, GCS 15, normal speech, no gross weakness of arms, no gross weakness of legs. No drift. Finger to nose intact. Gross sensation intact. MEDICAL DECISION MAKING: Differential diagnoses includes but not limited to hypoglycemia, electrolyte derangements, dehydration, shock, CVA, ICH, hydrocephalus, NPH, UTI, pneumonia, viral URI, postictal period, ACS, dysrhythmia, metabolic encephalopathy, multifactorial encephalopathy, polypharmacy, substance use In summary, this is a 75 year old male who presented with AMS. Differential as above. Nursing notes and pertinent past medical records reviewed. Vital signs reviewed and the patient is afebrile and HDS. History and presentation revealed ongoing confusion with weakness and frequent falls. Physical examination revealed as above. As a result of my initial evaluation, there is no evidence of significant drug like today. Patient's glucose on arrival was normal. Patient does utilize multiple medications at home including opiates. Potential for polypharmacy. Plan for CT head imaging while obtaining labs other laboratory workup. Will provide IV fluid resuscitation. No witnessed seizure- like activity. IV access was established on arrival. Diagnostics interpreted by me include EKG and cardiac monitoring as listed below: -Cardiac Monitoring: An order was placed for continuous cardiac monitoring. The monitor shows a rate of 60-70s with regular rhythm. -ECG: Normal sinus rhythm at a ventricular rate of [address] segment changes to suggest STEMI. There is a first-degree AV block as well as an incomplete right bundle branch block present. Intervals are otherwise normal limits. Patient completed laboratory studies and imaging. CXR independently interpreted by me reveals no evidence of focal consolidation to suggest pna. No large pneumothorax or pleural effusion. No obvious displaced rib fracture. CTH independently interpreted by me reveals no evidence of ICH. No significant hydrocephalus. No major skull fractures. CTH does not demonstrate findings to suggest an etiology of the patient's symptoms or presentation, today. Results independently interpreted by me are chronic anemia. No leukocytosis or elevation in procalcitonin. There is no significant electrolyte derangements or significant kidney dysfunction from baseline. No changes in LFTs. His BUN:Cr is slightly elevated and felt to be related to mild dehydration. The patient was managed with IVFR reviewed. Patient does not appear significantly confused but there is a possibility of acute encephalopathy. Do feel this could be related to reported neurocognitive dysfunction per . Patient feels very uncomfortable with the patient sleepiness and confusion regarding his safety returning home. She does feel that he would likely be more confused and may lead to another fall. She is requesting admission. Ultimately, the decision was made to admit the patient for acute encephalopathy. I discussed the case with the hospitalist service via telephone/Tiger[employer] and they are agreeable to admit the patient to their services. Based on the above, including the patient's age, coexisting illnesses, labs, imaging, and exam findings the decision to treat as an inpatient. I discussed the patient with the hospitalist team who recommended admission to their services. They received the medications, treatments, interventions indicated above and their condition remained stable. I discussed my findings with the patient and their family and they understand and agree with the treatment plan. All patient / family questions were answered to their satisfaction. Consults/Care Managements Discussions: Per [facility] treatment provided: See above Procedures: None Critical Care: None The chart was completed utilizing [employer] Speech voice recognition software. Grammatical errors, random word insertions, pronoun errors, and incomplete sentences are an occasional consequence of this system due to software limitations, ambient noise, and hardware issues. Any formal questions or concerns about the content, text, or information contained within the body of this dictation should be directly addressed to the physician for clarification. Past Med/Surg History Problem List (Updated 08/11/25 @ 18:05 by Venkata Dominguez DO) Chronic anemia (Acute) Generalized weakness (Acute) Ambulatory dysfunction (Acute) Acute encephalopathy (Acute) Delirium Opioid dependence Status post right knee replacement Diabetes mellitus, type 2 IDDM Osteoarthritis of right knee Metabolic encephalopathy Haq's esophagus with high grade dysplasia Lumbar spondylolysis moderate upper lumbar spondylosis, mild dextroscolisois and asymmetric facet hypertrophy; noted on xrays done at [facility] 05/07/2022 Tricompartment osteoarthritis of knee moderate to severe medial femorotibial and moderate patellofemoral compartment disease on R; xrays done at [facility] on 05/07/2022; s/p tigist procedure Osteoarthritis of right hip mild, noted on xrays done at [facility] 05/07/2022 Patellofemoral arthritis of left knee mild, xrays done [facility] 06[facility]05/22 Depression Smoking hx-quit 10/2022 Proteinuria Elevated liver enzymes Urinary incontinence resolved Uncontrolled diabetes mellitus with microalbuminuria Tubular adenoma (06/2019) Recheck colonoscopy recommended 3 years BPH (benign prostatic hyperplasia) Hypertension Hyperlipidemia Medical History Vitamin D deficiency Arthritis Post traumatic stress disorder Peripheral neuropathy Type 2 diabetes mellitus Urinary incontinence Hx of colonic polyps Tricompartment osteoarthritis of knee Moderate to severe medial femorotibial and moderate patellofemoral compartment disease on R; xrays done at [facility] on 05/07/2022; s/p tigist procedure Lumbar spondylolysis Moderate upper lumbar spondylosis, mild dextroscolisois and asymmetric facet hypertrophy; noted on xrays done at [facility] 05/07/2022 Hypertension Hyperlipidemia BPH (benign prostatic hyperplasia) Back pain Haq esophagus "cleared from Haq's esophagus" on last EGD Depression Tremor of both hands Surgical History History of tooth extraction History of anesthesia reaction "Woke up early" from anesthesia years ago Hx of bilateral cataract extraction History of esophagogastroduodenoscopy (EGD) 2018 Haq's esophagus with high-grade dysplasia, Follow-up EGD performed 09/2019 [facility] with excision/resection of dysplastic mucosa History of colonoscopy History of tonsillectomy H/O: knee surgery Right knee x2 Family History Father Family history of diabetes mellitus Coronary heart disease Cardiac disorder Myocardial infarction Hypertension Brother Family history of diabetes mellitus Other No family history of adverse response to anesthesia Denies family history of Ovarian cancer Prostate cancer Breast cancer Colorectal cancer Social History Smoking Status: Former smoker Tobacco Type: Cigarettes Age Started Using Tobacco: 18; Age Quit Using Tobacco: 72; packs per day: 1; Second Hand Exposure: No; Do You Dip or Chew Tobacco: No; Hx Alcohol Use: Yes Alcohol type: hard liquor Alcohol Intake Frequency: Monthly or Less Hx Substance Use: No Preferred Language: Telugu Communication Ability: Effective Visual Impairment: No Limitations Hearing Ability: Normal Car Seat Maker Required: No Beliefs That Will Affect Care: None marital status: Current Living Situation: Spouse current occupational status: retired current occupation: used to work at [employer] Feels Safe at Home: Yes Childhood Exposure to Second-Hand Smoke: Yes Diet: regular caffeine: Yes Dental Care, Regularly: No Physical Activity Frequency: Does not Exercise Seatbelt Use: never Sunscreen Use: No Assistive Devices: Cane Allergies Allergies Allergy/AdvReac Type Severity Reaction Status Date / Time lisinopril Allergy Mild Cough Verified 07/04/25 14:23 Home Meds Home Medications Medication Instructions Recorded Confirmed duloxetine 30 mg capsule,delayed 90 mg PO QAM 04/30/23 08/08/25 release finasteride 5 mg tablet 5 mg PO QAM 04/30/23 08/08/25 Medical Marijuana 1 dose inhalation UD PRN Pain 05/13/24 07/04/25 cholecalciferol (vitamin D3) 25 50 mcg PO QAM 05/13/24 08/08/25 mcg (1,000 unit) capsule (Vitamin D3) sitagliptin 100 mg tablet (Zituvio) 100 mg PO QAM 05/13/24 08/08/25 trospium 20 mg tablet 20 mg PO HS 05/13/24 08/08/25 losartan 100 mg tablet 100 mg PO HS 04/19/25 08/08/25 metformin 1,000 mg tablet 1,000 mg PO BID 04/19/25 08/08/25 omeprazole 40 mg capsule,delayed 40 mg PO QAM 04/19/25 08/08/25 release rosuvastatin 40 mg tablet 40 mg PO HS 04/19/25 08/08/25 tamsulosin 0.4 mg capsule 0.4 mg PO HS 04/19/25 08/08/25 insulin aspar prot-insulin aspart See Rx Instructions subcut BID 07/04/25 08/08/25 100 unit/mL (70-30) subcutaneous pen (Novolog Mix 70-30FlexPen U-100) Previous Rx's Medication Instructions Recorded blood sugar diagnostic (OneTouch #100 ea 12/01/19 Verio test strips) lancets 30 gauge (OneTouch Delica #100 ea 12/01/19 Lancets) insulin syringe-needle U-100 1 mL #400 ea 03/06/22 31 gauge x 5/16" (BD Insulin Syringe Ultra-Fine) oxycodone 10 mg tablet 10 mg PO Q8H PRN pain 30 days #90 08/02/25 tabs Results & Data (ED) Vital Signs Vital Signs - 24 hr 08/08/25 09:03 08/08/25 09:30 08/08/25 09:39 Temperature 36.3 C L Temperature Source Temporal Artery Scan Pulse Rate 78 Pulse Rate [Apical] 67 Respiratory Rate 19 18 Respiratory Effort / Characteristics Non-Labored Spontaneous Respiratory Depth Normal Respiratory Pattern Regular Blood Pressure 105/71 Blood Pressure [Left Arm] 130/70 Blood Pressure Mean 82 Blood Pressure Mean [Left Arm] 90 Pulse Oximetry 97 93 92 Oxygen Delivery Method Room Air Room Air Room Air Sepsis Recent Fever Within 48 Hours No Sepsis New/Unexplained Change in Mental Status Yes Sepsis Action Taken by Nursing No Action Required 08/08/25 10:15 08/08/25 12:00 Temperature Temperature Source Pulse Rate 66 Pulse Rate [Apical] 65 Respiratory Rate 16 Respiratory Effort / Characteristics Respiratory Depth Respiratory Pattern Blood Pressure Blood Pressure [Left Arm] 132/73 Blood Pressure Mean Blood Pressure Mean [Left Arm] 92 Pulse Oximetry 94 Oxygen Delivery Method Room Air Sepsis Recent Fever Within 48 Hours Sepsis New/Unexplained Change in Mental Status Sepsis Action Taken by Nursing Laboratory Data 08/08/25 09:22 08/08/25 09:22 Lab Results 08/08/25 08/08/25 08/08/25 Range/Units 09:22 09:28 10:47 WBC 6.84 (4.8-10.8) K/ul RBC 4.78 (4.70-6.10) M/uL Hgb 12.9 L (14.0-18.0) g/dL Hct 39.6 L (42.0-52.0) % MCV 82.8 (80.0-100.0) fL MCH 27.0 (25.0-34.0) pg MCHC 32.6 (32.0-36.0) g/dL RDW Std Deviation 42.4 (36.4-46.3) fL RDW Coeff of Colleen 14.1 (11.5-14.5) % Plt Count 144 (130-400) K/uL MPV 9.6 (9.4-12.4) fL Immature Gran % (Auto) 0.3 % Neut % (Auto) 64.5 % Lymph % (Auto) 24.1 % [place] % (Auto) 7.5 % Eos % (Auto) 2.9 % Baso % (Auto) 0.7 % Neut # (Auto) 4.41 (1.40-6.50) K/uL Lymph # (Auto) 1.65 (1.20-3.40) K/uL [place] # (Auto) 0.51 (0.11-0.59) K/uL Eos # (Auto) 0.20 (0.00-0.50) K/uL Baso # (Auto) 0.05 (0.00-0.20) K/uL Immature Gran # (Auto) 0.02 (0.01-0.20) K/uL Sodium 140 (136-145) mmol/L Potassium 3.7 (3.5-5.1) mmol/L Chloride 109 H (98-107) mmol/L Carbon Dioxide 25 (21-32) mmol/L Anion Gap 6 (3-11) BUN 27 H (6-23) mg/dl Creatinine 1.13 (0.6-1.4) mg/dl Est Cr Clr Drug Dosing 57.9 ml/min eGFR 67.78 BUN/Creatinine Ratio 23.9 H (10-20) Glucose 168 H (70-99(Fasting)) mg/dl POC Glucose 140 H (70-99) mg/dl Lactate 2.0 (0.4-2.0) mmol/L Calcium 11.5 H (8.6-10.3) mg/dl Magnesium 1.8 (1.7-2.4) mg/dl Total Bilirubin 0.6 (0.2-1.0) mg/dl AST 28 (13-39) U/L ALT 19 (7-52) U/L Alkaline Phosphatase 71 (34-104) U/L Total Creatine Kinase 235 H (30-223) U/L Troponin I High Sens 8.9 (0-20) pg/ml Total Protein 7.0 (6.0-8.3) gm/dl Albumin 3.8 (3.4-5.0) gm/dl Globulin 3.2 (2.5-4.0) gm/dl Albumin/Globulin Ratio 1.2 (0.9-2) Procalcitonin 0.17 (0-0.5) ng/ml TSH 1.570 (0.300-4.500) uIu/ml Urine Color Yellow Urine Appearance Clear (Clear) Urine pH 5.5 (4.5-7.5) Ur Specific [place] 1.008 (1.000-1.030) Urine Protein 2+ H (Negative) Urine Glucose (UA) Negative (Negative) Urine Ketones Negative (Negative) Urine Blood 2+ H (Negative) Urine Nitrite Negative (Negative) Urine Bilirubin Negative (Negative) Urine Urobilinogen Negative (Negative) Ur Leukocyte Esterase Negative (Negative) Urine WBC (Auto) 0-5 (0-5) /hpf Urine RBC (Auto) 0-2 (0-2) /hpf U Hyaline Cast (Auto) 3-5 H (0-2) /lpf U Epithel Cells (Auto) 0-2 (0-2) /hpf Urine Bacteria (Auto) None Seen (None Seen) Urine Comment Administered Medications Discontinued Medications Duloxetine HCl (Duloxetine Hcl 30 Mg Cap) 90 mg PO [facility] Stop: 09/08/25 08:59 Last Admin: 08/09/25 08:34 Dose: 90 mg Documented By: JASSON Finasteride (Finasteride 5 Mg Tab) 5 mg PO [facility] Stop: 09/08/25 08:59 Last Admin: 08/09/25 08:34 Dose: 5 mg Documented By: JASSON Parenteral Electrolytes (Plasma-Lyte A Ph 7.4) 1,000 mls @ 999 mls/hr IV .Q1H1M ONE Stop: 08/08/25 10:19 Last Infusion: 08/08/25 10:43 Dose: Infused Documented By: Admin: 08/08/25 09:35 Dose: 999 mls/hr Documented By: OVIDIO Insulin Aspart (Insulin Aspart Per Unit Charge) 0 units SC ACHS [facility] Stop: 09/07/25 16:29 Last Admin: 08/09/25 17:25 Dose: 6 units Documented By: JASSON Co-signed By: RASHAAD Admin: 08/09/25 12:42 Dose: 4 units Documented By: JASSON Co-signed By: KIRILL Admin: 08/09/25 08:36 Dose: 3 units Documented By: JASSON Co-signed By: KIRILL Admin: 08/08/25 21:27 Dose: 3 units Documented By: DON Co-signed By: NICOLE Admin: 08/08/25 17:36 Dose: 3 units Documented By: LOGAN Co-signed By: LYNDSEY Insulin Glargine (Lantus Per Unit Charge) 0 units SC BID [facility]; Protocol Stop: 09/07/25 20:59 Last Admin: 08/09/25 08:39 Dose: 15 units Documented By: JASSON Co-signed By: KIRILL Admin: 08/08/25 21:27 Dose: 15 units Documented By: DON Co-signed By: NICOLE Losartan Potassium (Losartan Potassium 50 Mg Tab) 100 mg PO [facility] Stop: 09/07/25 20:59 Last Admin: 08/08/25 21:14 Dose: 100 mg Documented By: DON Oxybutynin Chloride (Oxybutynin Chloride 5 Mg Tab) 5 mg PO [facility] Stop: 09/07/25 20:59 Last Admin: 08/08/25 21:14 Dose: 5 mg Documented By: DON Rosuvastatin Calcium (Rosuvastatin Calcium 20 Mg Tab) 40 mg PO [facility] Stop: 09/07/25 20:59 Last Admin: 08/08/25 21:14 Dose: 40 mg Documented By: DON Tamsulosin HCl (Tamsulosin Hcl 0.4 Mg Cap) 0.4 mg PO [facility] Stop: 09/07/25 20:59 Last Admin: 08/08/25 21:14 Dose: 0.4 mg Documented By: DON Vitamin D (Cholecalciferol 25 Mcg (1000 Units) Tab) 50 mcg PO [facility] Stop: 09/08/25 08:59 Last Admin: 08/09/25 08:34 Dose: 50 mcg Documented By: JASSON Imaging Data Radiologist's Impression: Chest X-Ray 08/08/25 09:19 XR chest 1V portable HISTORY: 75 years-old Male weakness COMPARISON: 03/22/2025 TECHNIQUE: AP view of the chest FINDINGS: Cardiomediastinal and hilar silhouettes are within normal limits. There is no pneumothorax, large pleural effusion or overt pulmonary edema. Mild right hemidiaphragmatic elevation with blunting of the lateral costophrenic angles redemonstrated. Mild chronic interstitial coarsening. Degenerative changes of the shoulders and spine with chronic-appearing bilateral rib fractures. IMPRESSION: No acute process of the chest. ACT 112: Negative or not required by law. The above report was generated using voice recognition software. It may contain grammatical, syntax or spelling errors. Electronically signed by: Catrachito Menchaca M.D. 08/08/2025 9:[address] 08/08/25 09:19 CT SCAN OF THE BRAIN WITHOUT IV CONTRAST CLINICAL HISTORY: Fall. Change in mental status. COMPARISON STUDY: CT of the brain dated 03/22/2025. TECHNIQUE: Unenhanced CT scan of the brain is performed from the vertex to the skull base. Images are reviewed in the axial, sagittal, coronal planes. A dose lowering technique was utilized adhering to the principles of ALARA. CT DOSE: 625.8 mGy.cm FINDINGS: Brain parenchyma: There is age-related involutional change noting mild to moderate subcortical and periventricular microangiopathic disease. There is no hemorrhage, mass effect, or evidence of acute territorial ischemia by CT criteria. Snyder-white matter differentiation is preserved. No extra-axial fluid collection is seen. Ventricles, sulci, cisterns: Prominent secondary to involutional change. Intracranial vasculature: There is atherosclerotic calcification of the cavernous carotid arteries. Calvarium: Unremarkable. Sinuses and mastoids: There is trace because of thickening within the maxillary sinuses. The remaining paranasal sinuses are clear. The mastoid air cells are well pneumatized. Orbits: The bony orbits are grossly intact. There are bilateral ocular lens implants. IMPRESSION: There is no hemorrhage, mass effect, or evidence of acute territorial ischemia by CT criteria. ACT 112: Negative or not required by law. Electronically signed by: Dane Sethi M.D. 08/08/2025 10:37 AM Discharge Plan Visit Data Chief Complaint: Altered Mental Status Stated Complaint: NOT PROCESSING THINGS CORRECTLY, LOW SUGAR, FALL ED Provider: Venkata Dominguez Discharge Problem: Acute encephalopathy, Ambulatory dysfunction, Generalized weakness, Chronic anemia Patient Disposition: Admitted As Inpatient Condition: Fair Discharge Instructions Interventions: ED Discharge Assessment Last Done: 08/08/25 16:03
[2025-08-08 09:35] LABS: Hematocrit (blood only) 39.6 % (42.0-52.0); Hemoglobin 12.9 g/dL (14.0-18.0); Immature Granulocytes # (auto) 0.02 K/uL (0.01-0.20); Immature Granulocytes % (auto) 0.3 %; Mean Corpuscular Hemoglobin 27.0 pg (25.0-34.0); Mean Corpuscular Volume 82.8 fL (80.0-100.0); Platelet Count 144 K/uL (130-400); RDW Standard Deviation 42.4 fL (36.4-46.3); Red Blood Count 4.78 M/uL (4.70-6.10); White Blood Count 6.84 K/ul (4.8-10.8)
[2025-08-08] MEDS: PLASMA-LYTE A 1,000 ML IV ONE (09:35)
--- NOTE | 2025-08-08 09:46 | XRay Report ---
XR chest 1V portable HISTORY: 75 years-old Male weakness COMPARISON: 03/22/2025 TECHNIQUE: AP view of the chest FINDINGS: Cardiomediastinal and hilar silhouettes are within normal limits. There is no pneumothorax, large ple ural effusion or overt pulmonary edema. Mild right hemidiaphragmatic elevation with blunting of the l ateral costophrenic angles redemonstrated. Mild chronic interstitial coarsening. Degenerative changes of the shoulders and spine with chronic-appearing bilateral rib fractures. IMPRESSION: No acute process of the chest. ACT 112: Negative or not required by law. The above report was generated using voice recognition software. It may contain grammatical, syntax o r spelling errors. Electronically signed by: Catrachito Menchaca M.D. 08/08/2025 9:44 AM
[2025-08-08 09:52] LABS: Alanine Aminotransferase 19.0 U/L (7-52); Albumin Globulin Ratio 1.2 (0.9-2); Albumin Level 3.8 gm/dl (3.4-5.0); Alkaline Phosphatase 71.0 U/L (34-104); Anion Gap 6.0 (3-11); Bilirubin,Total 0.6 mg/dl (0.2-1.0); Blood Urea Nitrogen 27.0 mg/dl (6-23); Calcium 11.5 mg/dl (8.6-10.3); Carbon Dioxide 25.0 mmol/L (21-32); Chloride 109.0 mmol/L (98-107); Creatine Kinase 235.0 U/L (30-223); Creatinine Clr Calc Pharmacy 57.9 ml/min; Globulin 3.2 gm/dl (2.5-4.0); Glucose 168.0 mg/dl (70-99(Fasting)); Magnesium 1.8 mg/dl (1.7-2.4); Potassium 3.7 mmol/L (3.5-5.1); Sodium 140.0 mmol/L (136-145); Total Protein 7.0 gm/dl (6.0-8.3)
[2025-08-08 10:07] LABS: Thyroid Stimulating Hormone 1.57 uIu/ml (0.300-4.500)
--- NOTE | 2025-08-08 10:39 | CT Scan Report ---
CT SCAN OF THE BRAIN WITHOUT IV CONTRAST CLINICAL HISTORY: Fall. Change in mental status. COMPARISON STUDY: CT of the brain dated 03/22/2025. TECHNIQUE: Unenhanced CT scan of the brain is performed from the vertex to the skull base. Images are reviewed in the axial, sagittal, coronal planes. A dose lowering technique was utilized adhering to the principles of ALARA. CT DOSE: 625.8 mGy.cm FINDINGS: Brain parenchyma: There is age-related involutional change noting mild to moderate subcortical and pe riventricular microangiopathic disease. There is no hemorrhage, mass effect, or evidence of acute ter ritorial ischemia by CT criteria. Snyder-white matter differentiation is preserved. No extra-axial flui d collection is seen. Ventricles, sulci, cisterns: Prominent secondary to involutional change. Intracranial vasculature: There is atherosclerotic calcification of the cavernous carotid arteries. Calvarium: Unremarkable. Sinuses and mastoids: There is trace because of thickening within the maxillary sinuses. The remainin g paranasal sinuses are clear. The mastoid air cells are well pneumatized. Orbits: The bony orbits are grossly intact. There are bilateral ocular lens implants. IMPRESSION: There is no hemorrhage, mass effect, or evidence of acute territorial ischemia by CT elizabeth chou. ACT 112: Negative or not required by law. Electronically signed by: Dane Sethi M.D. 08/08/2025 10:37 AM
[2025-08-08 11:06] LABS: Appearance Urine Clear (Clear); Bacteria Urine Automated None Seen (None Seen); Epithelial Cell Urine Auto 0-2 /hpf (0-2); Glucose Urine UA Negative (Negative); RBC Urine Automated 0-2 /hpf (0-2); WBC Urine Automated 0-5 /hpf (0-5)
[2025-08-08] MEDS ORDERED: PHARMACY GLYCEMIC MGMT CONSULT PRN (13:18)
[2025-08-08] MEDS ORDERED: GLUCAGON FOR INJ 1 MG VIAL SQ PRN (13:45)
[2025-08-08] MEDS ORDERED: CARBOHYDRATES FOR HYPOGLYCEMIA PO PRN (13:45)
[2025-08-08] MEDS ORDERED: DEXTROSE 50% 50 ML SYRINGE IV PRN (13:45)
[2025-08-08] MEDS ORDERED: GLUCOSE 10 TAB/TUBE PO PRN (13:45)
[2025-08-08] MEDS ORDERED: GLUCOSE 40% GEL 15 GM TUBE PO PRN (13:45)
--- NOTE | 2025-08-08 14:35 | Electrocardiogram Report ---
Test Reason : Blood Pressure : */* mmHG Vent. Rate : 73 BPM Atrial Rate : 73 BPM P-R Int : 268 ms QRS Dur : 116 ms QT Int : 406 ms P-R-T Axes : 86 -49 66 degrees QTcB Int : 447 ms Sinus rhythm with 1st degree A-V block Left axis deviation Incomplete right bundle branch block Abnormal ECG Confirmed by Raymundo Yip ([id number]) on 08/08/2025 2:35:27 PM Referred By: Confirmed By: Raymundo Yip
[2025-08-08] MEDS: INSULIN ASPART PER UNIT CHARGE SC SCH (17:36)
--- NOTE | 2025-08-08 18:33 | Pharmacy Report ---
Pharmacy Glycemic Short Note 2 - Date of Service August 08, 2025 - Glycemic Short BSG Results (Last 24 hours): 08/08/25 08/08/25 08/08/25 09:22 09:28 16:36 Glucose 168 H POC Glucose 140 H 123 H OUTPATIENT ANTIDIABETIC REGIMEN: * Novolog 70/30 45 units SQ BID * Metformin 1000mg PO BID * Sitagliptin 100mg PO daily * HbA1c: 6.9% (04/26/2025), repeat pending AM labs 08/09 ASSESSMENT: * Rickie is a 75 year old male with T2DM * A1c was 6.9% in April, but will obtain another since it is has been 90 days * Home regimen of Novolog 70/30 will be converted to Lantus BID * Decrease total dose by ~20%, use Lantus sliding scale * Use sliding scale Novolog for meal coverage with stress level 2 for now * T2DM diet PLAN FOR INPATIENT GLYCEMIC CONTROL: * Hold outpatient oral diabetes medications * Basal insulin * Lantus 15/20/25 units SQ BID * Bolus insulin * NovoLog per scale ACHS or Q6hrs while NPO * Goal Range: Low 110 mg/dL - High 140 mg/dL * Correction Factor: 25 mg/dL/unit * Nutritional / Prandial insulin per carb ratio of 1 unit per 9 grams CHO consumed
[2025-08-08] MEDS: LOSARTAN POTASSIUM 50 MG TAB PO SCH (21:14)
[2025-08-08] MEDS: ROSUVASTATIN CALCIUM 20 MG TAB PO SCH (21:14)
[2025-08-08] MEDS: TAMSULOSIN HCL 0.4 MG CAP PO SCH (21:14)
[2025-08-08] MEDS: LANTUS PER UNIT CHARGE SC SCH (21:27)
--- NOTE | 2025-08-09 00:30 | History & Physical Report ---
Date of Service August 08, 2025 Assessment & Plan (1) Delirium: Plan: 75 yo male with confusion. My be exacerbation of his dementia. No signs of infection. will hold narcotics.and medical marijuana. Patient though is currently alert and oriented x 3. Wiill monitor overnight. (2) Diabetes mellitus, type 2: Plan: consult glycemic control (3) Depression: Plan: Resume home meds. Plan #Opioid dependence: Apparently he takes oxycodone chronically for pain Admission and Anticipated Discharge Date Admission Date: August 08, 2025 History of Present Illness Chief Complaint: confusion Primary Care Provider: Perla Sosa MD Patient is 75 yo male with PMH og dementia, opioid dependence and uncontrolled diabetes admitted for confusion as per his . Patient appears to be awake and alert x 3 at time of interview. is not at bedside, however as per ED provider, patient has been acting more confused as per the past few days. Patient though has been calm during this hospital stay. Urine analysis has been clean. Allergies Allergy/AdvReac Type Severity Reaction Status Date / Time lisinopril Allergy Mild Cough Verified 07/04/25 14:23 Home Medications Medication Instructions Recorded Confirmed Type blood sugar diagnostic (OneTouch #100 ea 12/01/19 08/08/25 Rx Verio test strips) lancets 30 gauge (OneTouch Delica #100 ea 12/01/19 08/08/25 Rx Lancets) insulin syringe-needle U-100 1 mL #400 ea 03/06/22 08/08/25 Rx 31 gauge x 5/16" (BD Insulin Syringe Ultra-Fine) duloxetine 30 mg capsule,delayed 90 mg PO QAM 04/30/23 08/08/25 History release finasteride 5 mg tablet 5 mg PO QAM 04/30/23 08/08/25 History Medical Marijuana 1 dose inhalation UD PRN Pain 05/13/24 07/04/25 History cholecalciferol (vitamin D3) 25 50 mcg PO QAM 05/13/24 08/08/25 History mcg (1,000 unit) capsule (Vitamin D3) sitagliptin 100 mg tablet (Zituvio) 100 mg PO QAM 05/13/24 08/08/25 History trospium 20 mg tablet 20 mg PO HS 05/13/24 08/08/25 History losartan 100 mg tablet 100 mg PO HS 04/19/25 08/08/25 History metformin 1,000 mg tablet 1,000 mg PO BID 04/19/25 08/08/25 History omeprazole 40 mg capsule,delayed 40 mg PO QAM 04/19/25 08/08/25 History release rosuvastatin 40 mg tablet 40 mg PO HS 04/19/25 08/08/25 History tamsulosin 0.4 mg capsule 0.4 mg PO HS 04/19/25 08/08/25 History insulin aspar prot-insulin aspart See Rx Instructions subcut BID 07/04/25 08/08/25 History 100 unit/mL (70-30) subcutaneous pen (Novolog Mix 70-30FlexPen U-100) oxycodone 10 mg tablet 10 mg PO Q8H PRN pain 30 days #90 08/02/25 08/08/25 Rx tabs Past Med/Surg History Problem List Delirium Opioid dependence Status post right knee replacement Diabetes mellitus, type 2 IDDM Osteoarthritis of right knee Metabolic encephalopathy Haq's esophagus with high grade dysplasia Lumbar spondylolysis moderate upper lumbar spondylosis, mild dextroscolisois and asymmetric facet hypertrophy; noted [facility]2022 Tricompartment osteoarthritis of knee moderate to severe medial femorotibial and moderate patellofemoral compartment disease on R; xrays done at [place] on 05/07/2022; s/p tigist pr ocedure Osteoarthritis of right hip mild, noted on xrays done at [facility] 05/07/2022 Patellofemoral arthritis of left knee mild, xrays done at [facility] 06/05/22 Depression Smoking hx-quit 10/2022 Proteinuria Elevated liver enzymes Urinary incontinence resolved Uncontrolled diabetes mellitus with microalbuminuria Tubular adenoma (06/2019) Recheck colonoscopy recommended 3 years BPH (benign prostatic hyperplasia) Hypertension Hyperlipidemia Medical History Vitamin D deficiency Arthritis Post traumatic stress disorder Peripheral neuropathy Type 2 diabetes mellitus Urinary incontinence Hx of colonic polyps Tricompartment osteoarthritis of knee Moderate to severe medial femorotibial and moderate patellofemoral comp artment disease on R; xrays done at [place] on 05/07/2022; s/p tigist procedure Lumbar spondylolysis Moderate upper lumbar spondylosis, mild dextroscolisois and asymmetric facet hypertrophy; noted on xrays done at [place] 05/07/2022 Hypertension Hyperlipidemia BPH (benign prostatic hyperplasia) Back pain Haq esophagus "cleared from Haq's esophagus" on last EGD Depression Tremor of both hands Surgical History History of tooth extraction History of anesthesia reaction "Woke up early" from anesthesia years ago Hx of bilateral cataract extraction History of esophagogastroduodenoscopy (EGD) 2019 Haq's esophagus with high-grade dysplasia, Follow-up EGD performed 09/2019 [facility] with excision/resection of dysplastic mucosa History of colonoscopy History of tonsillectomy H/O: knee surgery Right knee x2 Family History Father Family history of diabetes mellitus Coronary heart disease Cardiac disorder Myocardial infarction Hypertension Brother Family history of diabetes mellitus Other No family history of adverse response to anesthesia Denies family history of Ovarian cancer Prostate cancer Breast cancer Colorectal cancer Social History Smoking Status: Former smoker Tobacco Type: Cigarettes Age Started Using Tobacco: 18; Age Quit Using Tobacco: 72; packs per day: 1; Second Hand Exposure: No; Do You Dip or Chew Tobacco: No; Hx Alcohol Use: Yes Alcohol type: hard liquor Alcohol Intake Frequency: Monthly or Less Hx Substance Use: No Preferred Language: Martiniquais Communication Ability: Effective Visual Impairment: No Limitations Hearing Ability: Normal Electronic Game Developer Required: No Beliefs That Will Affect Care: None marital status: Current Living Situation: Spouse current occupational status: retired current occupation: used to work at [employer] Feels Safe at Home: Yes Childhood Exposure to Second-Hand Smoke: Yes Diet: regular caffeine: Yes Dental Care, Regularly: No Physical Activity Frequency: Does not Exercise Seatbelt Use: never Sunscreen Use: No Assistive Devices: Cane, Scooter/Electric Scooter, Walker and Wheelchair Review of Systems Review of Systems: Unobtainable due to cognitive status Physical Exam Physical Exam: General-alert and oriented x3, no fever, no chills HEENT-head atraumatic and normocephalic, pupils equal and reactive to light, extraocular muscles intact Neck-no lymphadenopathy or thyromegaly, trachea midline Chest-clear to auscultation. No rales, wheezing or rhonchi Cardiac-mildly tachycardic rate and regular rhythm, normal S1 and S2 Abdomen-normal bowel sounds, no hepatosplenomegaly Extremities-no cyanosis, clubbing, or edema. Abrasions noted on both knees Neuro-cranial nerves II through XII intact, motor and sensory function within normal limits, strength symmetrical, no focal deficits. Psych-normal affect, normal mood Results & Data Results & Data Vital Signs (Past 12 Hours) Vital Signs Temp Pulse Pulse Pulse Resp BP BP 08/08/25 21:11 36.7 C 71 18 137/76 08/08/25 16:23 36.8 C 73 18 130/70 08/08/25 16:23 36.8 C 73 18 130/70 08/08/25 16:19 08/08/25 16:03 67 20 131/76 08/08/25 14:32 66 08/08/25 14:00 63 17 141/77 H 08/08/25 13:06 66 16 139/84 Pulse Ox O2 Del Method 08/08/25 21:11 96 Room Air 08/08/25 16:23 94 Room Air 08/08/25 16:23 94 Room Air 08/08/25 16:19 Room Air 08/08/25 16:03 96 Room Air 08/08/25 14:32 08/08/25 14:00 92 Room Air 08/08/25 13:06 92 Room Air PG Care Time/CCT Total # of Minutes Spent Total Time Spent with Patient: Total time spent is greater than 50% in coordination of care (as documented) at patient's floor/unit and/or counseling patient: Coding Level of Care Code 22075 INT INP/OBS CARE 3/75MIN Diagnoses Delirium R41.0 Type 2 diabetes mellitus with hyperglycemia, with long-term current use of insulin E11.65; Z79.4 Diabetes mellitus complication status: with hyperglycemia Diabetes mellitus skilled nursing insulin use: with terminal gauger use Depression F32.A (2) Diabetes mellitus, type 2 Diabetes mellitus complication status: with hyperglycemia Diabetes mellitus terminal gauger insulin use: with skilled nursing use Qualified Code(s): E11.65 - Type 2 diabetes mellitus with hyperglycemia; Z79.4 - termite control representative (current) use of insulin
[2025-08-09 07:40] VITALS: RESP 16
[2025-08-09 07:41] LABS: Hemoglobin A1C 6.5 % (4.5-5.6)
[2025-08-09] MEDS: FINASTERIDE 5 MG TAB PO SCH (08:34)
[2025-08-09] MEDS: CHOLECALCIFEROL 25 MCG (1000 UNITS) TAB PO SCH (08:34)
[2025-08-09 14:27] VITALS: BP 134/76; PULSE 75; TEMP 98.4; O2SAT 93
--- NOTE | 2025-08-09 17:15 | Discharge Summary ---
Discharge Summary Date of Service August 09, 2025 Principal Dx & Hospital Course #1 = Principal Diagnosis (1) Delirium: 75 yo male with confusion. My be exacerbation of his dementia. No signs of infection. will hold narcotics.and medical marijuana. Patient though is currently alert and oriented x 3. Wiill monitor overnight. (2) Diabetes mellitus, type 2: consult glycemic control (3) Depression: Resume home meds. Plan #Opioid dependence: Apparently he takes oxycodone chronically for pain Admission HPI Per Admitting Provider Patient is 75 yo male with PMH og dementia, opioid dependence and uncontrolled diabetes admitted for confusion as per his . Patient appears to be awake and alert x 3 at time of interview. is not at bedside, however as per ED provider, patient has been acting more confused as per the past few days. Patient though has been calm during this hospital stay. Urine analysis has been clean. Discharge Plan Discharge Items Patient Disposition: Home - Self-Care Reason For Visit: ALTERED MENTAL STATUS Discharge Diagnosis: Altered [place] Status Activity: Resume your previous activity Non-emergency contact: Primary Care Provider Call non-emergency contact if: you have any medication questions Follow-up/Referrals: Perla Sosa MD [Primary Care Provider] - Diet: Regular and Carb Consistent or DM2 Addtl Attending Provider Instructions: Recommend cutting back on narcotics and marijuana. You may use Tylenol scheduled 650 mg PO QID. Pending Studies at Discharge: No Stand-Alone Forms: [facility], Sm[facility] Cessation Medications and DC Order Prescriptions: Continued (DME) blood sugar diagnostic [OneTouch Verio test strips] Strip See Rx Instructions .ROUTE .MEDSUPPLY Qty: 100 5RF Rx Instructions: USE TO CHECK BLOOD SUGARS TWICE A DAY E11.65 E11.9 (DME) lancets [OneTouch Delica Lancets] 30 gauge misc See Rx Instructions .ROUTE .MEDSUPPLY Qty: 100 5RF Rx Instructions: USE TO TEST TWICE DAILY E11.9 E11.65 (DME) insulin syringe-needle U-100 [BD Insulin Syringe Ultra-Fine] 1 mL 31 gauge x 5/16 syringe See Rx Instructions .ROUTE .MEDSUPPLY Qty: 400 3RF Rx Instructions: As directed oxycodone 10 mg tablet 10 mg PO Q8H PRN (Reason: pain) 30 Days Qty: 90 0RF insulin asp prt-insulin aspart [Novolog Mix 70-30FlexPen U-100] 100 unit/mL (7 0-30) insulin pen See Rx Instructions subcut BID Rx Instructions: 45 units in AM 45 units in PM subcutaneously twice a day; finasteride 5 mg tablet 5 mg PO QAM duloxetine 30 mg capsule,delayed release(DR/EC) 90 mg PO QAM sitagliptin [Zituvio] 100 mg Tablet 100 mg PO QAM cholecalciferol (vitamin D3) [Vitamin D3] 25 mcg (1,000 unit) Capsule 50 mcg PO QAM trospium 20 mg Tablet 20 mg PO HS Rx Instructions: administer on an empty stomach Medical Marijuana 1 dose inhalation UD PRN (Reason: Pain) omeprazole 40 mg Capsule,Delayed Release(Dr/Ec) 40 mg PO QAM tamsulosin 0.4 mg Capsule 0.4 mg PO HS metformin 1,000 mg Tablet 1,000 mg PO BID losartan 100 mg tablet 100 mg PO HS rosuvastatin 40 mg tablet 40 mg PO HS Discharge Orders: Discharge Order (Routine); Ordered 08/09/25 Ordered By: Renny Christensen/Other Patient Handouts: Managing Type 2 Diabetes Admission Data Admit Date/Time: 08/08/25 12:54 Attending Provider: Renny Patel Admit Provider: Renny Patel Primary Care Provider: Perla Sosa Other Providers: Magdy Rao; [facility],Hospital Hospital Stay Data Consultations 08/08/25 12:24 ED Decision to Admit Stat Diagnostic Imagining Performed 08/08/25 09:19 CT head/brain wo con Stat Pending Results Patient Have Any Pending Studies at Discharge: No Discharge Instructions Given to Patient (Per Discharging Provider) Recommend cutting back on narcotics and marijuana. You may use Tylenol scheduled 650 mg PO QID. Coding Diagnoses Delirium R41.0 Type 2 diabetes mellitus with hyperglycemia, with long-term current use of insulin E11.65; Z79.4 Diabetes mellitus senior care insulin use: with director long term care use Diabetes mellitus complication status: with hyperglycemia Depression F32.A
== END 2025-08-09 18:27 | disposition home or self-care (01) | DRG 884 ==
LOC: SUATTDRO → ED 08:59 → 3N 12:54